=== PATIENT | female | born 1960 | race Caucasian/White ===

== ENCOUNTER 2023-08-22 04:00 | Day surgery (SDC) | payer OTHER ==
[2023-08-22] VITALS (246 sets, daily range): BP systolic 77–144; BP diastolic 48–92
[~2023-08-22] VITALS: Ht 157.5 cm; Wt 70.1 kg
[2023-08-22 08:29] LABS: BASO% 0.9 % (0-3); EOS% 3.3 % (0-8); HEMATOCRIT 38.9 % (37.0-47.0); HEMOGLOBIN 13.2 g/dl (12.0-16.0); IMMATURE GRANULOCYTES 0.3 % (0.0-5.0); LYMPH% 49.2 % (15-41); MEAN CELL VOLUME 90.5 fL CALC (80.0-100.0); MEAN CORPUSCULAR HGB 30.7 pG CALC (26.0-32.0); MEAN CORPUSCULAR HGB CONC 33.9 g/dL CAL (32.0-36.0); MONO% 8.8 % (2-13); NEUT# 2.48 thou/uL (2.00-7.15); NEUT% 37.5 % (42-76); RED BLOOD COUNT 4.3 mill/uL (4.20-5.60)
[2023-08-22] MEDS ORDERED: TIROSINT175 MCG PO (08:33)
[2023-08-22] MEDS ORDERED: ALLOPURINOL200 MG PO (08:34)
[2023-08-22] MEDS ORDERED: ATORVASTATIN CA20 MG PO (08:35)
[2023-08-22] MEDS ORDERED: LISINOPRIL20 M1 PO (08:36)
[2023-08-22] MEDS ORDERED: HYDROCHLOROT25 MG PO (08:36)
[2023-08-22] MEDS ORDERED: LEXAPRO20 MG PO (08:36)
[2023-08-22] MEDS ORDERED: OS-CAL 500500 M1 PO (08:37)
[2023-08-22] MEDS ORDERED: VITAMIN D-32000 UNI1 PO (08:38)
[2023-08-22] MEDS ORDERED: LUNESTA2 MG PO (08:39)
[2023-08-22] MEDS ORDERED: PROTONIX40 M2 PO (08:40)
[2023-08-22] MEDS ORDERED: IMITREX25 MG PO (08:41)
[2023-08-22 08:42] LABS: ALKALINE PHOSPHATASE 92 u/l (38-126); ANION GAP 11 (6-22 (CALC)); BILIRUBIN, TOTAL 0.1 mg/dL (0.02-1.3); BUN 12 mg/dL (8-23); BUN/CREATININE RATIO 20 (12-20 (CALC)); CARBON DIOXIDE 27 mmol/l (22-30); CHLORIDE 103 mmol/l (95-108); CREATININE 0.6 mg/dL (0.5-1.0); GFR FOR AFR.AMER. > 60 ML/MIN (>=60 (CALC)); GFR OTHER RACES > 60 ML/MIN (>=60 (CALC)); SGOT/AST 41 u/l (9-36); SODIUM 137 mmol/l (137-146); TOTAL PROTEIN 6.7 g/dL (6.3-8.2)
[2023-08-22] MEDS ORDERED: [UNRECOGNIZED DRUG - OTHER] PO (08:42)
[2023-08-22] MEDS ORDERED: NALTREXONE50 MG PO (14:47)
[2023-08-22] MEDS ORDERED: CLONIDINE0.1 MG PO (14:47)
[2023-08-22] MEDS ORDERED: KLONOPIN2 MG PO (14:47)
[2023-08-23 04:16] VITALS: BP 137/78
[2023-08-23 05:22] LABS: BASO% 0.2 % (0-3); HEMATOCRIT 35.4 % (37.0-47.0); HEMOGLOBIN 12.4 g/dl (12.0-16.0); IMMATURE GRANULOCYTES 0.7 % (0.0-5.0); LYMPH% 10.3 % (15-41); MEAN CELL VOLUME 89.6 fL CALC (80.0-100.0); MEAN CORPUSCULAR HGB 31.4 pG CALC (26.0-32.0); MONO% 1.6 % (2-13); NEUT# 9.62 thou/uL (2.00-7.15); NEUT% 87.2 % (42-76); RED BLOOD COUNT 3.95 mill/uL (4.20-5.60)
[2023-08-23 05:36] LABS: ALBUMIN 3.9 g/dL (3.2-5.0); ALKALINE PHOSPHATASE 69 u/l (38-126); BUN 14 mg/dL (8-23); BUN/CREATININE RATIO 18 (12-20 (CALC)); CHLORIDE 102 mmol/l (95-108); CREATININE 0.8 mg/dL (0.5-1.0); GFR FOR AFR.AMER. > 60 ML/MIN (>=60 (CALC)); GFR OTHER RACES > 60 ML/MIN (>=60 (CALC)); MAGNESIUM 2.1 mg/dL (1.6-2.3); POTASSIUM 4.6 mmol/l (3.5-5.1); SGOT/AST 59 u/l (9-36); SODIUM 135 mmol/l (137-146); TOTAL PROTEIN 6.5 g/dL (6.3-8.2)
[2023-08-23 05:46] LABS: ANION GAP 19 (6-22 (CALC)); BILIRUBIN, TOTAL 0.4 mg/dL (0.02-1.3); CARBON DIOXIDE 19 mmol/l (22-30)
[2023-08-23 09:04] VITALS: BP 132/76
== END 2023-08-23 16:10 | disposition home or self-care (01) | DRG 897 ==
LOC: ANR 04:00 → MS2 04:00 → ANR 08:00
PROVIDERS: ATTEND Anesthesiology Critical Care Medicine
DX: F11.20 Opioid dependence, uncomplicated (principal)
CPT/HCPCS: J2354; J3475